=== PATIENT | female | born 1995 | race Caucasian/White ===

== ENCOUNTER 2018-11-02 22:37 | Outpatient (CLI) | payer MEDICAID | END 2018-11-03 00:05 | disposition home or self-care (01) | LOC: OBT 22:37 → L-D 22:38 | DX: O26.893 Other specified pregnancy related conditions, third trimester (principal); Z3A.36 36 weeks gestation of pregnancy; O36.8130 Decreased fetal movements, third trimester, not applicable or unspecified | CPT/HCPCS: 76815; 76818 ==